=== PATIENT | female | born 1950 | race Caucasian/White ===

== ENCOUNTER 2018-04-11 14:41 | Outpatient (CLI) | payer BC, SELFPAY ==
--- NOTE | 2018-04-11 15:00 | DI.RAD_ITS ---
SYMPTOM/DIAGNOSIS: RT KNEE MASS OVER TIBIAL TUBERCLE RIGHT KNEE: There is prominent spurring at the medial femoral tibial joint as well as patellofemoral joint. Spurring is also seen at the tibial spines and femoral intercondylar notch. No joint effusion is seen. IMPRESSION: Degenerative changes, greatest of the medial femoral tibial joint.
== END 2018-04-11 15:01 ==
PROVIDERS: Visit Provider Student in an Organized Health Care Education/Training Program
DX: R22.41 Localized swelling, mass and lump, right lower limb (principal); M17.11 Unilateral primary osteoarthritis, right knee; M25.861 Other specified joint disorders, right knee
CPT/HCPCS: 73560

== ENCOUNTER 2019-02-20 01:02 | Outpatient (CLI) | payer BC, SELFPAY ==
--- NOTE | 2019-02-20 08:13 | DI.US_ITS ---
EXAM: US PELVIS TRANSVAGINAL CLINICAL HISTORY: persistant ovarian cyst,n83.209 TECHNIQUE: Ultrasound performed using standard protocol. Transabdominal and transvaginal exams wer e performed. COMPARISON: PELVIS TRANSVAG from 06/07/2013 ABD PELVIS TRANSVAG from 03/19/2016 FINDINGS: The uterus measures 8.0 x 3.2 x 5.5 cm. There is a 2 centimeter fibroid toward the right near the f undus. A 1.5 x 1.1 x 2 centimeter calcified fibroid is seen in the mid anterior myometrium. There i s a focal area of echogenicity within the endometrium measuring 7 x 3 x 9 millimeters which could rep resent an endometrial polyp. The right ovary was not visualized at today's exam. The left ovary is p oorly seen due to shadowing bowel gas. A 2.1 centimeter cyst is noted on the left ovary. The Left o vary was not seen on the previous exams. No free fluid or hydronephrosis is seen. IMPRESSION: 7 x 3 x 9 millimeter endometrial lesion could represent a polyp. This appears new when compared with the prior exams. A 2.1 centimeter left ovarian cyst. The right ovary was not visible.
== END 2019-02-20 01:22 ==
PROVIDERS: PCP Physician Assistant Medical; Visit Provider Obstetrics & Gynecology Gynecology
DX: N83.292 Other ovarian cyst, left side (principal); D25.9 Leiomyoma of uterus, unspecified
CPT/HCPCS: 76830; 76856

== ENCOUNTER 2019-03-21 01:31 | Outpatient (CLI) | payer BC, SELFPAY ==
--- NOTE | 2019-03-21 08:59 | DI.MAMMO_ITS ---
EXAM: MG MAMMO DIAGNOSTIC BI CLINICAL HISTORY: R breast pain with thickening M64.4 MASTODYNIA. COMPARISON: No exams were available for comparison TECHNIQUE: Craniocaudal and mediolateral oblique Full Field Digital Mammography views of the bilater al breast with Computer Aided Diagnosis followed by Tomosynthesis . FINDINGS: Mammography/Tomosynthesis: Masses/Architectural Distortion: None seen. Microcalcifictions: No suspicious pleomorphic-type are seen. Skin Thickening/Nipple Retraction: None. IMPRESSION: 1. No evidence of malignancy is noted. 2. Unless there is more urgent need, follow-up screening mammography is recommended, as per [place] [employer] guidelines. ACR BI-RAD Category- 1 Negative Breast Density - Category B - Scattered areas of fibroglandular density The findings were discussed with the patient on the date of the examination. A negative radiographic report should not delay biopsy if a dominant or clinically suspicious mass is present. Up to ten percent of cancers are not identified on mammography. A negative report may reinforce clinical impression. Adenosis and dense breasts may obscure an underlying neoplasm. False positive reports average 6 to 10%. Patient will receive a letter notifying them of these results.
== END 2019-03-21 01:51 ==
PROVIDERS: PCP Physician Assistant Medical; Visit Provider Obstetrics & Gynecology Gynecology
DX: N64.4 Mastodynia (principal)
CPT/HCPCS: 77062; 77066; G0279

== ENCOUNTER → 2020-05-23 09:49 | Outpatient (BNVA) | payer MEDICARE, BC, SELFPAY | PROVIDERS: PCP Physician Assistant Medical; Referring Provider Physician Assistant Medical; Visit Provider Student in an Organized Health Care Education/Training Program | DX: M70.61 Trochanteric bursitis, right hip (principal) | CPT/HCPCS: 20610; J1040 ==

== ENCOUNTER 2020-06-24 12:02 | Outpatient (REF) | payer MEDICARE, BC, SELFPAY ==
--- NOTE | 2020-06-24 11:50 | PAPFT_PTH ---
PATIENT: Namrata Love LOC: [facility] U#:[id number] AGE/SX: 69/F ROOM: RE06/24/[address]: Kathleen Ledesma : 1950 BED: DIS: 06/24/2020 SPEC #: [id number] RECD: 06/24/20 12:57 STATUS: MONISHA HERNANDEZ #: [id number] ANGELICA: 06/24/20 11:[address]: Kathleen Ledesma DEPT: [facility] Cytology RECD BY: Alondra Rousseau ENTERED: 06/24/20 12:58 SP TYPE: PAPFT OTHR DR: Dolores Monet Tissues: 1 - CX/ENDOCX FOR PAP SMEARS Procedures: PAP THIN PREP/UVM Screening HPV DNA PROBE Comments: [id number]
== END 2020-06-24 12:03 | disposition home or self-care (01) ==
LOC: LBN 12:02
PROVIDERS: PCP Physician Assistant Medical; Visit Provider Obstetrics & Gynecology Gynecology
DX: Z12.4 Encounter for screening for malignant neoplasm of cervix (principal); Z11.51 Encounter for screening for human papillomavirus (HPV)
CPT/HCPCS: 88142; 87624

== ENCOUNTER 2020-08-12 02:44 | Outpatient (CLI) | payer MEDICARE, BC, SELFPAY ==
--- NOTE | 2020-08-12 07:45 | DI.MAMMO_ITS ---
Exam(s) MAMMO SCREENING EXAM: MAMMO SCREENING CLINICAL HISTORY: screening,Z12.39 TECHNIQUE: Bilateral full field digital CC and MLO mammographic images were obtained with 3D tomosyn thesis and utilizing computer aided detection (CAD). COMPARISON: Available for comparison. FINDINGS: Masses/Architectural Distortion: None seen. Microcalcifications: No suspicious pleomorphic-type are seen. Skin Thickening/Nipple Retraction: None. IMPRESSION: 1. No significant interval change with no specific features of malignancy noted. 2. Unless there is more urgent need, screening mammography is recommended, as per [place] [employer] guidelines. BI-RADS Category 1 - Negative Breast Density - Category B - Scattered areas of fibroglandular density Breast density category C or D implies that the patient has dense breast tissue. Dense breast tissue is very common and is not abnormal but dense breast tissue can make it harder to find cancer on a ma mmogram. Also, dense breast tissue may increase their breast cancer risk. This information about the result of the mammogram report was provided to the patient to raise their awareness. Use this report when you speak with the patient about their risks for breast cancer, which includes their family hist ory. At that time, you may recommend for more screening tests (Ultrasound or MRI) as they might be us eful based on their risk. A negative radiographic report should not delay biopsy if a dominant or clinically suspicious mass is present. Up to ten percent of cancers are not identified on mammography. A negative report may reinforce clinical impression. Adenosis and dense breasts may obscure an underlying neoplasm. False positive reports average 6 to 10%. Patient will receive a letter notifying them of these results.
--- NOTE | 2020-08-12 07:45 | DI.US_ITS ---
Exam(s) US PELVIS TRANSVAGINAL EXAM: US PELVIS TRANSVAGINAL CLINICAL HISTORY: f/u L ovarian cyst,N83.201. TECHNIQUE: Transabdominal and transvaginal pelvic ultrasound was performed using standard protocol. COMPARISON: US US PELVIS TRANSVAGINAL from 02/20/2019 FINDINGS: Examination is limited due to patient body habitus. KIDNEYS: Kidneys are symmetric in size. No evidence of renal calculi. No evidence of hydronephrosis. No renal mass or cyst identified. UTERUS: Position: Anteverted. Size: 6.5 long by 2.8 AP by 2.4 transverse cm Endometrium: 0.3 cm. Normal for patient's menstrual status. There is an echogenic focus in the lower uterine segment of the endometrial canal which may represent a calcification. Myometrium: At least 2 uterine fibroids are noted. The largest is seen anteriorly and measures 1.6 x 2.7 x 2.2 cm. Cervix: Unremarkable. OVARIES: Difficult to visualize on this examination. Right: 1.3 x 0.7 x 0.8 cm Cyst or mass: None. Left: 2 x 1.2 x 1.1 cm Cyst or mass: There is a question of 1.9 cm cyst. DOPPLER: Color: Symmetric and uniform flow to both ovaries. No hyperemia. Duplex: Normal ovarian arterial waveforms visualized. CUL-DE-SAC: Free fluid: None. Other: None. IMPRESSION: 1. Suboptimal examination. 2. Normal sonographic appearance of the kidneys. 3. Fibroid uterus. 4. Poorly visualized ovaries. Question of a 1.9 cm left ovarian cyst. 5. MRI should be considered for further evaluation. DATA REPOSITORY:
== END 2020-08-12 03:04 ==
PROVIDERS: PCP Internal Medicine; Visit Provider Obstetrics & Gynecology Gynecology
DX: N83.292 Other ovarian cyst, left side (principal); D25.9 Leiomyoma of uterus, unspecified; Z12.31 Encounter for screening mammogram for malignant neoplasm of breast
CPT/HCPCS: 77063; 77067; 76830; 76856

== ENCOUNTER 2020-12-09 16:30 | Outpatient (CLI) | payer MEDICARE, BC, SELFPAY ==
--- NOTE | 2020-12-09 14:45 | DI.RAD_ITS ---
Exam(s) XR ELBOW RT COMPLETE EXAM: XR ELBOW RT COMPLETE CLINICAL HISTORY: right elbow pain. TECHNIQUE: 2D digital imaging was performed. COMPARISON: No exams were available for comparison FINDINGS: BONES: No acute fracture is present. No bony destructive lesion is seen. JOINTS: The elbow is normally aligned. No joint effusion is seen. Periarticular spurring. SOFT TISSUE: Normal. IMPRESSION: Periarticular spurring.. DATA REPOSITORY: RADIATION DOSE DELIVERED:
== END 2020-12-09 16:31 | disposition home or self-care (01) ==
LOC: DIORS 16:31
PROVIDERS: PCP Internal Medicine; Referring Provider Internal Medicine; Visit Provider Student in an Organized Health Care Education/Training Program
DX: M25.521 Pain in right elbow (principal); G56.21 Lesion of ulnar nerve, right upper limb; G56.01 Carpal tunnel syndrome, right upper limb
CPT/HCPCS: 99213; 73080

== ENCOUNTER → 2021-12-05 00:57 | Outpatient (CLI) | payer MEDICARE, BC, SELFPAY ==
--- NOTE | 2021-12-05 06:45 | DI.MAMMO_ITS ---
Exam(s) MAMMO SCREENING EXAM: MAMMO SCREENING CLINICAL HISTORY: screening,z12.39 TECHNIQUE: Mammograms were interpreted according to the usual protocol including computer analysis w [employer] CAD system, tomosynthesis and C-view imaging. COMPARISON: FINDINGS: The breasts are of moderate density with fairly symmetrical distribution of fibroglandular tissue. N o dominant mass or clumped microcalcification is identified in either breast. The current examinatio n is compared with previous examinations including August 2020 and there has been no gross interval tyler nge in appearance in comparison with prior studies. IMPRESSION: No specific evidence of malignancy at this time. Routine screening examinations are suggested at yea rly intervals in this age group according to the ACS ACR guidelines. BI-RADS Category 1 - Negative Breast Density - Category B - Scattered areas of fibroglandular density
== END ==
PROVIDERS: PCP Internal Medicine; Visit Provider Obstetrics & Gynecology Gynecology
DX: Z12.31 Encounter for screening mammogram for malignant neoplasm of breast (principal)
CPT/HCPCS: 77063; 77067

== ENCOUNTER 2021-12-11 10:59 | Outpatient (CLI) | payer MEDICARE, BC, SELFPAY ==
--- NOTE | 2021-12-11 10:30 | DI.RAD_ITS ---
Exam(s) XR KNEE RT 4V AP,LAT,MANSI,PAT EXAM: XR KNEE RT 4V AP,LAT,MANSI,PAT CLINICAL HISTORY: f/u R knee OA TECHNIQUE: COMPARISON: CR XR knee RT 2V AP,lat from 04/11/2018 FINDINGS: Four views were obtained. There is moderate narrowing of the cartilaginous joint spaces medial tibio femoral joint and patellofemoral joint. There are prominent marginal osteophytes involving all 3 nela nts of the knee. There are superior and inferior patellar enthesophytes. No other significant bony abnormality seen. IMPRESSION: Degenerative changes as described above, predominantly involving medial tibiofemoral joint and patell ofemoral joint. RADIATION DOSE DELIVERED: Total DLP
== END 2021-12-11 11:00 | disposition home or self-care (01) ==
LOC: DIORS 11:00
PROVIDERS: PCP Internal Medicine; Referring Provider Internal Medicine; Visit Provider Student in an Organized Health Care Education/Training Program
DX: M17.11 Unilateral primary osteoarthritis, right knee (principal)
CPT/HCPCS: 20610; 73564; J1040

== ENCOUNTER → 2022-12-23 02:09 | Outpatient (CLI) | payer MEDICARE, BC, SELFPAY ==
--- NOTE | 2022-12-23 15:15 | DI.MAMMO_ITS ---
Exam(s) MAMMO SCREENING EXAM: MAMMO SCREENING CLINICAL HISTORY: screening TECHNIQUE: Bilateral full field digital CC and MLO mammographic images were obtained with 3D tomosyn thesis and utilizing computer aided detection (CAD). COMPARISON: Available for comparison. FINDINGS: Masses/Architectural Distortion: There is 7.6 mm nodule in the upper outer quadrant of the right ethan st which appears to have shown slight interval increase in size compared to the prior examinations. Microcalcifications: No suspicious pleomorphic-type are seen. Skin Thickening/Nipple Retraction: None. IMPRESSION: 1. Interval increase in size of a nodule in the right breast in the upper outer quadrant. 2. A spot compression views requested for further evaluation. Right breast ultrasound may be indicat ed at that time. BI-RADS Category 0 - Assessment Incomplete: Need additional imaging evaluation Breast Density - Category C - Heterogeneously dense Breast density category C or D implies that the patient has dense breast tissue. Dense breast tissue is very common and is not abnormal but dense breast tissue can make it harder to find cancer on a ma mmogram. Also, dense breast tissue may increase their breast cancer risk. This information about the result of the mammogram report was provided to the patient to raise their awareness. Use this report when you speak with the patient about their risks for breast cancer, which includes their family hist ory. At that time, you may recommend for more screening tests (Ultrasound or MRI) as they might be us eful based on their risk. A negative radiographic report should not delay biopsy if a dominant or clinically suspicious mass is present. Up to ten percent of cancers are not identified on mammography. A negative report may reinforce clinical impression. Adenosis and dense breasts may obscure an underlying neoplasm. False positive reports average 6 to 10%. Patient will receive a letter notifying them of these results.
== END ==
PROVIDERS: Visit Provider Obstetrics & Gynecology Gynecology
DX: Z12.31 Encounter for screening mammogram for malignant neoplasm of breast (principal)
CPT/HCPCS: 77063; 77067

== ENCOUNTER → 2022-12-28 01:50 | Outpatient (CLI) | payer MEDICARE, BC, SELFPAY ==
--- NOTE | 2022-12-28 | DI.MAMMO_ITS ---
Exam(s) MG MAMMO SCREEN CALL BACK UNI US BREAST RT COMPLETE EXAM: MG MAMMO SCREEN CALL BACK UNI CLINICAL HISTORY: F/U MAMMO,INTERVAL INCREASE IN RT NODULE,R92.8. TECHNIQUE: Unilateral spot mammographic images obtained with 3D tomosynthesisand utilizing computer aided detection (CAD). . Complete right breast Ultrasound was also performed, including all 4 quadrants, the retroareolar lucille on, and the ipsilateral axilla. COMPARISON: Prior mammograms were reviewed. This additional imaging was performed due to findings described on the recent screening mammogram of 12/23/2022. FINDINGS: DIAGNOSTIC MAMMOGRAM: Additional mammographic views performed todayreveals that this nodule has appearance of a probable be nign intramammary lymph node. COMPLETE RIGHT BREAST ULTRASOUND: Ultrasound performed today reveals no evidence of solid or significant cystic lesions in all 4 quadra nts, implying that this nodules most probably benign intramammary lymph node.. Scanning of the ipsilateral axilla reveals no significant adenopathy. IMPRESSION: 1. Benign findings. The nodule most probably represents a benign intramammary lymph node. Appropriate follow-up discussed by myself with the patient today is repeat right breast MAMMOGRAM in 6 months. The patient was informed of these findings and recommendations by myself prior to leaving the departm ent today. BI-RADS Category 3 - 6 month - Probably Benign Finding: Recommend follow-up mammography in 6 months Breast Density - Category B - Scattered areas of fibroglandular density Breast density Category C or D implies that the patient has dense breast tissue. Dense breast tissue can make it harder to find cancer on a mammogram. Dense breast tissue is also associated with an incr eased risk of breast cancer. This information about the result of the mammogram report was provided to the patient to raise their awareness. Use this report when you speak with the patient about their risks for breast cancer, which includes their family history. At that time, you may recommend additional screening tests (Ultrasoun d or MRI) as these tests may add significant information. A negative radiographic report should not delay biopsy if a dominant or clinically suspicious mass is present. Up to ten percent of cancers are not identified on mammography. A negative report may reinforce clinical impression. Adenosis and dense breasts may obscure an underlying neoplasm. False positive reports average 6 to 10%. Patient will receive a letter notifying them of these results.
== END ==
PROVIDERS: Visit Provider Obstetrics & Gynecology Gynecology
DX: R92.8 Other abnormal and inconclusive findings on diagnostic imaging of breast (principal); Z12.31 Encounter for screening mammogram for malignant neoplasm of breast
CPT/HCPCS: 76642; 77063; 77067

== ENCOUNTER → 2023-01-18 12:51 | Outpatient (BNVA) | payer MEDICARE, BC, SELFPAY | PROVIDERS: Visit Provider Surgery | DX: D22.5 Melanocytic nevi of trunk (principal) | CPT/HCPCS: 11402; 12001 ==

== ENCOUNTER 2023-01-18 13:14 | Outpatient (REF) | payer MEDICARE, BC, SELFPAY ==
--- NOTE | 2023-01-18 13:20 | SKI_PTH ---
PATIENT: Namrata Love LOC: [facility] U#:[id number] AGE/SX: 72/F ROOM: RE01/18/[address]: Martha De Dios MD : 1950 BED: DIS: 01/18/2023 SPEC #: [id number] RECD: 01/18/23 16:31 STATUS: MONISHA REMoe #: [id number] ANGELICA: 01/18/23 13:[address]: Martha De Dios DEPT: Surgical Specimen RECD BY: Alondra Rousseau ENTERED: 01/18/23 16:38 SP TYPE: MARISEL DIXON DR: No Local Tissues: 1 - SKIN BIOPSY(SHAVE/PUNCH) Procedures: SKIN LEVEL 4 Comments: [id number]
== END 2023-01-18 13:15 | disposition home or self-care (01) ==
LOC: LBN 13:14
PROVIDERS: Visit Provider Surgery
DX: D22.9 Melanocytic nevi, unspecified (principal); N64.89 Other specified disorders of breast; L98.8 Other specified disorders of the skin and subcutaneous tissue
CPT/HCPCS: 88305

== ENCOUNTER → 2023-07-05 03:52 | Outpatient (CLI) | payer MEDICARE, BC, SELFPAY ==
--- NOTE | 2023-07-05 08:00 | DI.MAMMO_ITS ---
Exam(s) MAMMO DIAGNOSTIC UNI EXAM: MAMMO DIAGNOSTIC UNI -RIGHT: CLINICAL HISTORY: 6 month f/u r breast nodule,N63.0. TECHNIQUE: BOTH CC AND MLO RIGHT BREAST mammographic images were obtained with 3D tomosynthesis tech [employer] and utilizing computer aided detection (CAD). COMPARISON: Prior mammograms were reviewed, the most recent being DECEMBER 2022.. Ultrasound December 2022 also reviewed. FINDINGS: DIAGNOSTIC RIGHT BREAST MAMMOGRAM : Previously described benign-appearing nodular density in the upper-outer quadrant of the right breast is again noted appears unchanged and has the appearance of probable benign intramammary lymph node,, unchanged in size and configuration. There are no new additional mammographic findings in the right breast. We did not proceed with repeat right breast ultrasound today, given the lack of change and the fact t hat this nodule was not visible on prior ultrasound examination of December 2022. However, the patient states that she feels a palpable lump in the right axilla. Therefore we use her allotted time slot to perform a separate axillary sound examination. See that separate report IMPRESSION: 1. Stable benign-appearing right breast mammographic findings. 2. See separate right axillary ultrasound report, performed today Appropriate follow-up is to keep this patient on a yearly mammogram schedule, with earlier imaging if a self detected breast change is noted.. The patient was informed of the findings and follow-up recommendations by myself prior to leaving the department today. BI-RADS Category 2 - Benign Findings Breast Density - Category B - Scattered areas of fibroglandular density Breast density Category C or D implies that the patient has dense breast tissue. Dense breast tissue can make it harder to find cancer on a mammogram. Dense breast tissue is also associated with an incr eased risk of breast cancer. This information about the result of the mammogram report was provided to the patient to raise their awareness. Use this report when you speak with the patient about their risks for breast cancer, which includes their family history. At that time, you may recommend additional screening tests (Ultrasoun d or MRI) as these tests may add significant information. A negative radiographic report should not delay biopsy if a dominant or clinically suspicious mass is present. Up to ten percent of cancers are not identified on mammography. A negative report may reinforce clinical impression. Adenosis and dense breasts may obscure an underlying neoplasm. False positive reports average 6 to 10%. Patient will receive a letter notifying them of these results.
--- NOTE | 2023-07-05 08:05 | DI.US_ITS ---
Exam(s) US AXILLA RT EXAM: US AXILLA RT CLINICAL HISTORY: per Dr. Evans please scan right axilla TECHNIQUE: Ultrasound right axilla performed using standard protocol. COMPARISON: No exams were available for comparison FINDINGS: This right axillary ultrasound was performed because the patient informed us today that she is feelin g a new lump in the right axilla. Both axillary regions were scanned for comparison purposes. RIGHT AXILLA: There are benign-appearing lymph nodes in the right axilla. Largest corresponds to wha t she is feeling measures slightly over 2 cm but exhibits normal echotexture. A few other smaller benign-appearing lymph nodes also noted in the right axilla. LEFT AXILLA: There also benign-appearing lymph nodes in left axilla. IMPRESSION: As above. There does not appear to be pathologic adenopathy in either axilla. DATA REPOSITORY:
== END ==
PROVIDERS: Visit Provider Obstetrics & Gynecology Gynecology
DX: Z12.31 Encounter for screening mammogram for malignant neoplasm of breast (principal); N63.15 Unspecified lump in the right breast, overlapping quadrants
CPT/HCPCS: 76642; 77061; 77065; G0279

== ENCOUNTER → 2024-05-11 14:19 | Outpatient (BNVA) | payer MEDICARE, BC, SELFPAY | PROVIDERS: Visit Provider Student in an Organized Health Care Education/Training Program | DX: Z12.11 Encounter for screening for malignant neoplasm of colon (principal); Z80.0 Family history of malignant neoplasm of digestive organs; I10 Essential (primary) hypertension ==

== ENCOUNTER 2024-09-19 16:25 | Outpatient (REF) | payer MEDICARE, BC, SELFPAY ==
[2024-09-19 14:18] LABS: Glucose Negative (Negative)
[2024-09-19 14:42] LABS: C & S Indicated? No; RBC 20-50 HPF (0-2)
== END 2024-09-19 16:26 | disposition home or self-care (01) ==
LOC: LBN 16:25
PROVIDERS: Visit Provider Nurse Practitioner Family
DX: R39.9 Unspecified symptoms and signs involving the genitourinary system (principal)
CPT/HCPCS: 81003; 81015

== ENCOUNTER 2024-10-12 03:19 | Outpatient (CLI) | payer MEDICARE, BC, SELFPAY ==
--- NOTE | 2024-10-12 08:15 | DI.MAMMO_ITS ---
Exam(s) MAMMO SCREENING EXAM: MAMMO SCREENING CLINICAL HISTORY: screening,z12.31 TECHNIQUE: Bilateral full field digital CC and MLO mammographic images were obtained with 3D tomosynthesis and utilizing computer aided detection (CAD). COMPARISON: Comparison is made with prior examinations. FINDINGS: Masses/Architectural Distortion: No suspicious masses or areas of architectural distortion are present. There is a stable nodule in the upper outer quadrant of the right breast. Microcalcifications: No suspicious pleomorphic-type are seen. Skin Thickening/Nipple Retraction: None. IMPRESSION: 1. No significant interval change with no specific features of malignancy noted. 2. Unless there is more urgent need, screening mammography is recommended, as per [place] [employer] guidelines. BI-RADS Category 2 - Benign Findings Breast Density - Category B - There are scattered areas of fibroglandular density. Breast density Category C or D implies that the patient has dense breast tissue. Dense breast tissue can make it harder to find cancer on a mammogram. Dense breast tissue is also associated with an increased risk of breast cancer. This information about the result of the mammogram report was provided to the patient to raise their awareness. Use this report when you speak with the patient about their risks for breast cancer, which includes their family history. At that time, you may recommend additional screening tests (Ultrasound or MRI) as these tests may add significant information. A negative radiographic report should not delay biopsy if a dominant or clinically suspicious mass is present. Up to ten percent of cancers are not identified on mammography. A negative report may reinforce clinical impression. Adenosis and dense breasts may obscure an underlying neoplasm. False positive reports average 6 to 10%. Patient will receive a letter notifying them of these results.
== END 2024-10-12 03:39 ==
PROVIDERS: PCP Family Medicine; Visit Provider Obstetrics & Gynecology
DX: Z12.31 Encounter for screening mammogram for malignant neoplasm of breast (principal); R92.323 Mammographic fibroglandular density, bilateral breasts
CPT/HCPCS: 77063; 77067

== ENCOUNTER 2024-12-14 04:16 | Outpatient (CLI) | payer MEDICARE, BC, SELFPAY ==
[2024-12-14 08:44] LABS: ESR 12 mm/hr (0-30); HCT 41.2 % (36.0-46.0); HGB 13.7 g/dL (11.2-15.7); MCH 30.2 pg (27.0-33.0); MCHC 33.3 % (32.0-36.0); MCV 91 fL (80-95); MPV 9.4 fL (8.0-11.0); Platelet Count 296 10^3/uL (130-400); RBC 4.53 10^6/uL (3.93-5.22); RDW 12.4 % (11.7-14.6); RDW-SD 41.1 fL; WBC 6.44 10^3/uL (4.4-10.8)
[2024-12-14 09:41] LABS: ALT 26 U/L (14-59); AST 18 U/L (15-37); Albumin 3.8 g/dL (3.4-5.0); Alkaline Phosphatase 88 U/L (46-116); Anion Gap 7.4 mmol/L (3-11); BUN 14 mg/dL (7-18); Bilirubin, Total 0.4 mg/dL (0.2-1.0); CO2 32.6 mmol/L (21.0-32.0); Calcium 9.2 mg/dL (8.5-10.1); Calculated LDL 167 mg/dL (<100); Chloride 100 mmol/L (98-107); Cholesterol 253 mg/dL (<200); Estimated GFR 67.92 (mL/min/1.73m2); Glucose 99 mg/dL (74-106); HDL Cholesterol 65 mg/dL (>or=50); Potassium 4.4 mmol/L (3.5-5.1); Sodium 140 mmol/L (136-145); TSH 0.55 uIU/mL (0.36-3.74); Total Protein 7.0 g/dL (6.4-8.2); Triglyceride 105 mg/dL (<150)
[2024-12-14 18:20] LABS: T3,Free 3.6 pg/mL (2.8-5.3)
== END 2024-12-14 04:17 | disposition home or self-care (01) ==
LOC: LBO 04:16
PROVIDERS: PCP Family Medicine; Visit Provider Family Medicine
DX: E03.8 Other specified hypothyroidism (principal); D51.9 Vitamin B12 deficiency anemia, unspecified
CPT/HCPCS: 36415; 80053; 80061; 85027; 85652; 84439; 84443; 84481; 86038; 86431